=== PATIENT | female | born 1965 ===

== ENCOUNTER 2021-03-12 07:46 | Emergency (ER) | payer SELFPAY ==
[2021-03-12] MEDS ORDERED: ASPIRIN 325 MG TAB PO ONE (07:54)
--- NOTE | 2021-03-12 08:25 | XRay Report ---
CHEST 2 VIEWS INDICATION: CP SOB. COMPARISON: None FINDINGS: Support devices: None. Heart: Within normal limits. Lungs/pleura: No acute air space or interstitial disease. No pneumothorax. Additional findings: None. IMPRESSION: No acute findings. Signer Name: Napoleon Elmore Jr, MD Signed: 03/12/2021 8:21 AM Workstation Name: [id number]
[2021-03-12 08:53] LABS: Basophils % (Auto) 0.5 % (0.0-1.8); Eosinophils # (Auto) 0.1 K/mm3 (0.0-0.4); Eosinophils % (Auto) 2.1 % (0.0-4.3); Hematocrit 36.2 % (30.3-42.9); Hemoglobin 12.7 gm/dl (10.1-14.3); Lymphocytes % (Auto) 38.3 % (13.4-35.0); Mean Corpuscular HGB Conc 35 % (30-34); Mean Corpuscular Volume 92 fl (79-97); Monocytes # (Auto) 0.7 K/mm3 (0.0-0.8); Monocytes % (Auto) 13.6 % (0.0-7.3); Platelet Count 228 K/mm3 (140-440); Red Blood Count 3.93 M/mm3 (3.65-5.03); Red Cell Distribution Width 13.3 % (13.2-15.2)
[2021-03-12 09:17] LABS: Alanine Aminotransferase 12 units/L (7-56); Albumin 4.4 g/dL (3.9-5); Blood Urea Nitrogen 13 mg/dL (7-17); Calcium 9.5 mg/dL (8.4-10.2); Hemolysis Index 12
[2021-03-12 09:21] LABS: BUN/Creatinine Ratio 19
--- NOTE | 2021-03-12 18:32 | Event Note ---
ED Screening Note Date of service: 03/12/21 Time: 18:30 ED Screening Note: 55-year-old female patient with family history of heart disease presents to the emergency department with complaints of chest pain, shortness of breath, and nausea starting 3 days ago. Describes the pain as "sharp," intermittent, worse with movement and deep inhalation. Takes aspirin daily. Pain has been worsening in frequency and intensity since last night. Patient has never been evaluated by a wine consultant. Bradycardic in triage. General: Awake, appropriately interactive, no acute distress. Neck: Supple. Full range of motion intact. Cardiovascular: Normal peripheral perfusion. Pulmonary: No respiratory distress. Patient is speaking normally without use of accessory muscles. Chest pain is worse with deep inhalation. Skin: No apparent rashes or lesions. Neurological: No facial asymmetry. Speech is clear. Follows commands. Patient is alert and oriented. Musculoskeletal: Moves all four extremities spontaneously with normal range of motion. Psych: Cooperative. Appropriate mood and affect. I have greeted and performed a focused rapid initial assessment of this patient. A comprehensive ED assessment and evaluation of the patient, analysis of all test results, and completion of the medical decision-making process will be conducted by additional ED providers. This initial assessment/diagnostic orders/clinical plan/treatment(s) is/are subject to change based on patients health status, clinical progression and re-assessment. Further treatment and workup at subsequent clinical provider's discretion. Patient/guardian urged not to elope from the ED as their condition may be serious if not clinically assessed and managed.
--- NOTE | 2021-03-13 00:28 | Emergency Department Report ---
ED Chest Pain HPI - General Chief Complaint: Chest Pain Stated Complaint: CHEST PAIN PUI?: No Time Seen by Provider: 03/13/21 00:22 Source: patient Mode of arrival: Ambulatory Limitations: Language Barrier - History of Present Illness Initial Comments: Patient is a 55-year-old female who presents emergency room with complaints of chest pain. Patient states that sternal chest pain. Patient states the chest pain started 4 days ago. Patient states the chest pain is worsening. Patient states the pain is a 10 out of 10. Patient states she is also having neck pain. Patient states the neck pain is 8 out of 10. Patient states the chest pain and neck pain are worse with movement and palpation. Patient states the chest pain and neck pain are better with rest and remaining still. Patient denies fever and chills. Patient complains of nausea. Patient states the pain is so sharp that is making her have difficulty breathing. Patient states the pain is worse with a deep breath. Patient denies recent travel. Patient denies recent international travel. Patient denies exposure to the novel coronavirus. Patient denies sick contacts. Patient denies fever and chills. Patient denies cough. Patient denies diarrhea. Patient denies coming in contact with anybody with symptoms of the novel coronavirus. MD Complaint: chest pain -: Sudden Onset: during rest Pain Location: substernal Pain Radiation: none Severity: severe Severity scale (0 -10): 10 Quality: sharp Consistency: constant Improves With: rest Worsens With: palpation, movement re: nausea, dyspnea. denies: vomting, diaphoresis Other Symptoms: denies: cough, fever, syncope, rash, acid taste in mouth, leg swelling, palpitations, burping Treatments Prior to Arrival: aspirin Aspirin use within the Past 7 Days: (1) Yes - Related Data On Oral Contraceptives: No Previous Rx's Medication Instructions Recorded Last Taken Type HYDROcodone/APAP 5-325 [[place] 1 each PO Q4HR PRN #12 tablet 03/13/21 Unknown Rx 5/325] methylPREDNISolone [Medrol 4MG 4 mg PO DAILY 6 Days #1 tab.ds.pk 03/13/21 Unknown Rx DOSEPAK (21 tabs)] Allergies Allergy/AdvReac Type Severity Reaction Status Date / Time No Known Allergies Allergy Verified 03/13/21 00:24 Heart Score - HEART Score History: Slightly suspicious EKG: Normal Age: 45-65 Risk factors: No known risk factors Troponin: < normal limit HEART Score: 1 - EKG Read Time Time EKG Completed: 08:00 EKG Read Time: 08:07 ED Review of Systems ROS: Stated complaint: CHEST PAIN Other details as noted in HPI Constitutional: denies: chills, fever Eyes: denies: eye pain, eye discharge, vision change ENT: denies: ear pain, throat pain Respiratory: shortness of breath. denies: cough, wheezing Cardiovascular: as per HPI, chest pain. denies: palpitations Endocrine: no symptoms reported Gastrointestinal: denies: abdominal pain, nausea, diarrhea Genitourinary: denies: urgency, dysuria, discharge Musculoskeletal: denies: back pain, joint swelling, arthralgia Skin: denies: rash, lesions Neurological: denies: headache, weakness, paresthesias Psychiatric: denies: anxiety, depression Hematological/Lymphatic: denies: easy bleeding, easy bruising ED Past Medical Hx - Past Medical History Previous Medical History?: No - Surgical History Past Surgical History?: Yes Additional Surgical History: HYSTO/ TONSILS - Family History Family history: no significant - Social History Smoking Status: Never Smoker Substance Use Type: None - Medications Home Medications: Home Medications Medication Instructions Recorded Confirmed Last Taken Type HYDROcodone/APAP 5-325 [[place] 1 each PO Q4HR PRN #12 tablet 03/13/21 Unknown Rx 5/325] methylPREDNISolone [Medrol 4MG 4 mg PO DAILY 6 Days #1 tab.ds.pk 03/13/21 Unknown Rx DOSEPAK (21 tabs)] ED Physical Exam - General Limitations: Language Barrier General appearance: alert, in no apparent distress - Head Head exam: Present: atraumatic, normocephalic - Eye Eye exam: Present: normal appearance - ENT ENT exam: Present: mucous membranes moist - Neck Neck exam: Present: normal inspection - Respiratory Respiratory exam: Present: normal lung sounds bilaterally, chest wall tend erness. Absent: respiratory distress, wheezes, rales, rhonchi - Cardiovascular Cardiovascular Exam: Present: regular rate, normal rhythm, normal heart sounds. Absent: systolic murmur, diastolic murmur, rubs, gallop - GI/Abdominal GI/Abdominal exam: Present: soft, normal bowel sounds - Extremities Exam Extremities exam: Present: normal inspection - Back Exam Back exam: Present: normal inspection - Neurological Exam Neurological exam: Present: alert, oriented X3 - Psychiatric Psychiatric exam: Present: normal affect, normal mood - Skin Skin exam: Present: warm, dry, intact, normal color. Absent: rash ED Course Vital Signs 03/12/21 03/13/21 07:57 00:24 Temperature 98 F Pulse Rate 50 L Respiratory 22 Rate Blood Pressure 154/77 [Right] O2 Sat by Pulse 100 100 Oximetry - Reevaluation(s) Reevaluation #1: Patient states her pain is better. Patient will be discharged home. Patient has chest wall pain. I discussed all results and clinical findings with patient. I discussed plan of care with patient. Patient agrees with plan of care. Patient is stable for discharge. Patient will be discharged home. Patient given discharge instructions. Patient voiced understanding of discharge instructions. 03/13/21 01:47 ESSIE score - Essie Score Age > 65: (0) No Aspirin use within the Past 7 Days: (1) Yes 3 or more CAD Risk Factors: (0) No 2 or more Angina events in past 24 hrs: (0) No Known CAD with more than 50% Stenosis: (0) No Elevated Cardiac Markers: (0) No ST Deviation Greater than 0.5mm: (0) No ESSIE Score: 1 ED Medical Decision Making - Lab Data Result diagrams: 03/12/21 08:38 03/12/21 08:38 - EKG Data -: EKG Interpreted by Me EKG shows normal: sinus rhythm, axis, intervals, QRS complexes, ST-T waves Rate: bradycardia - Radiology Data Radiology results: report reviewed, image reviewed interpreted by me: Chest x-ray: No pneumonia, no pneumothorax, no foreign body, no osseous findings, no acute findings CHEST 2 VIEWS INDICATION: CP SOB. COMPARISON: None FINDINGS: Support devices: None. Heart: Within normal limits. Lungs/pleura: No acute air space or interstitial disease. No pneumothorax. Additional findings: None. IMPRESSION: No acute findings. - Medical Decision Making Patient is a 55-year-old female who comes emergency room with complaints of chest pain. Patient's chest pain is severe. Patient chest pain is reproducible with palpation and movement. Patient had labs done that were essentially unremarkable. Patient had three sets of cardiac enzymes which were negative. Patient had two EKGs both showed a sinus bradycardia with no ST changes. I personally reviewed EKGs. Patient had a chest x-ray shows no acute findings. I personally reviewed the chest x-ray. Patient was given steroids which improved her chest pain and the patient was given Dilaudid. Patient responded well to treatment and left with a lower abdominal pain. Patient will be discharged home with a steroid pack and pain medication. Patient not require further emergency medical service. Patient not require inpatient services. Patient stable for discharge. The patient has low risk chest pain. Patient heart score is low. Patient presents emergency room with complaints of chest pain and the patient information was faxed over to her local cardiology group for further evaluation and treatment and risk stratification of her chest pain. - Differential Diagnosis Chest pain, chest wall pain, pleurisy, Critical care attestation.: If time is entered above; I have spent that time in minutes in the direct care of this critically ill patient, excluding procedure time. ED Disposition Clinical Impression: Chest wall pain, Shortness of breath, Costochondritis, acute Chest pain Qualifiers: Chest pain type: unspecified Qualified Code(s): R07.9 - Chest pain, unspecified Disposition: DC-01 TO HOME OR SELFCARE Is pt being admited?: No Does the pt Need Aspirin: No Condition: Stable Instructions: Nonspecific Chest Pain, Adult, Chest Wall Pain, [id number], Costochondritis Additional Instructions: Patient to follow-up with primary care in 2 to 3 days. Patient to follow-up with rug renovator and orthopedist in 2 to 3 days. Patient to rest. Patient to increase water. Patient to avoid strenuous exercise or heavy lifting until cleared by rug renovator and orthopedist. Patient to take Tylenol or ibuprofen as needed for pain. Patient to take meds as directed. Patient to return to the ER if condition worsens, changes or new symptoms arise. Prescriptions: methylPREDNISolone [Medrol 4MG DOSEPAK (21 tabs)] 4 mg PO DAILY 6 Days #1 tab.ds.pk HYDROcodone/APAP 5-325 [[place] 5/325] 1 each PO Q4HR PRN #12 tablet PRN Reason: Pain Referrals: PRIMARY CARE, [Primary Care Provider] - 2-3 Days YAMILEX URBINA MD [Staff Physician] - 2-3 Days COLE SKINNER MD [Staff Physician] - 2-3 Days Time of Disposition: 01:53
[2021-03-13] MEDS ORDERED: methylPREDNISolone Sod Succinate 125 MG/2 ML INJ IV ONE (00:29)
[2021-03-13] MEDS ORDERED: HYDROmorphone 1 MG/1 ML INJ IV ONE (01:22)
[2021-03-13 03:09] VITALS: BP 115/67
--- NOTE | 2021-03-13 17:46 | Electrocardiograph Report ---
[facility] Test Date: 2021-03-12 Test Time: 08:00:55 Pat Name: SAMMIE YEPEZ Department: Room: Gender: F Academic Director: SOREN : 1965 Requested By: ED DOC Order Number: [id number] Reading MD: Migel Ramirez Measurements Intervals [place] Rate: 43 P: 7 CO: 161 QRS: -35 QRSD: 103 T: 4 QT: 489 QTc: 412 Interpretive Statements Sinus bradycardia Left axis deviation No previous ECG available for comparison Electronically Signed On 03-13-2021 17:46:09 EDT by Migel Ramirez
--- NOTE | 2021-03-13 17:58 | Electrocardiograph Report ---
[facility] Test Date: 2021-03-13 Test Time: 01:44:01 Pat Name: SAMMIE YEPEZ Department: Room: Gender: F Architectural Draftsperson: JUVE : 1965 Requested By: REILLY REYES III Order Number: [id number] Reading MD: Migel Ramirez Measurements Intervals [place] Rate: 47 P: 24 ME: 152 QRS: -29 QRSD: 99 T: 16 QT: 500 QTc: 442 Interpretive Statements Sinus bradycardia Compared to ECG 03/12/2021 08:00:55 Left-axis deviation no longer present Electronically Signed On 03-13-2021 17:58:23 EDT by Migel Ramirez
== END 2021-03-13 03:09 | disposition home or self-care (01) ==
LOC: ED 07:46
DX: M94.0 Chondrocostal junction syndrome [Tietze] (principal); R06.02 Shortness of breath
CPT/HCPCS: 36415; 71046; 80053; 84484; 85025; 93005; 96374; 96375; 99284; J1170; J2930